=== PATIENT | female | born 1990 | race Caucasian/White ===

== ENCOUNTER 2016-06-20 18:46 | Emergency (ER) | payer BC ==
--- NOTE | ~2016-06-20 | CR286 ---
[facility] A Service of [facility] RADIOLOGY TEXT RESULTS PATIENT: FARIBA DASILVA LOCATION: SED : [birth year] UNIT #: [id number] AGE: [address]: Debby Acuña SEX: F ORDER DR: [id number] [address] [address] [id number] E MR#: [id number] #: [id number] NAME: FARIBA DASILVA : 1990 SEX: F STUDY DATE/TIME: 06/20/2016 18:56 UNIT: SED ROOM: STUDY DESCRIPTION: CR Wrist W Navicular Min 3 Rt Attending Physician: Debby Acuña P.A.-C. Ordering Physician: Debby Acuña P.A.-C. Primary Care Physician: Primary Care Physician No MEDICAL IMAGING REPORT This report is preliminary unless electronic signature is present. EXAM Right wrist 3 views. HISTORY Fell last night. Pain and swelling, not to touch. FINDINGS 3 views of the right wrist demonstrates an intraarticular fracture of the distal radius. There is an old ununited ulnar styloid fracture or accessory ossicle. Moderate amount of soft tissue swelling over the dorsum of the hand, nonspecific. IMPRESSION 1. Apparent nondisplaced intraarticular fracture of the distal radius which extends intraarticular near the scapholunate interval. There is also a well corticated ossicle off the ulnar styloid which may represent an accessory ossicle which is favored. An old ulnar styloid fracture considered less likely. 2. Dorsal soft tissue swelling could be related to recent fracture though superimposed cellulitis not excluded. Dictated by... Karine Santiago M.D. THIS IS AN ELECTRONICALLY VERIFIED REPORT Karine Santiago M.D. at 06/21/2016 1:07 PM JEREMY/frank TD: 06/20/2016 22:11 JOB #: [id number] [facility] A Service of [facility] RADIOLOGY TEXT RESULTS PATIENT: FARIBA DASILVA LOCATION: SED : 91 UNIT #: [id number] AGE: [address]: Debby Acuña SEX: F ORDER DR: MEDICAL IMAGING REPORT Page 1 of 1
--- NOTE | ~2016-06-20 | CR142 ---
[facility]. [facility] A Service of [facility] RADIOLOGY TEXT RESULTS PATIENT: FARIBA DASILVA LOCATION: SED : 91 UNIT #: [id number] AGE: [address]: Debby Acuña SEX: F ORDER DR: [id number] [address] [address] [id number] E MR#: [id number] Acc #: [id number] NAME: FARIBA DASILVA : 1990 SEX: F STUDY DATE/TIME: 06/20/2016 18:56 UNIT: SED ROOM: STUDY DESCRIPTION: CR Hand Min 3 Views Rt Attending Physician: Debby Acuña P.A.-C. Ordering Physician: Debby Acuña P.A.-C. Primary Care Physician: Primary Care Physician No MEDICAL IMAGING REPORT This report is preliminary unless electronic signature is present. EXAM Right hand 3 views. HISTORY Pain and swelling, fell last night. FINDINGS 3 views of the right hand demonstrates soft tissue swelling over the dorsum of the hand. There is a nondisplaced intraarticular fracture of the distal radius. Well-corticated ossicle distal to the ulna probably represents an accessory ossicle and less likely old ulnar styloid fracture. The distal radial fracture primarily represents a longitudinal fracture extending intraarticular at the scapholunate interval but again no deformity of the radial articular surface. Dictated by... Karine Santiago M.D. THIS IS AN ELECTRONICALLY VERIFIED REPORT Karine Santiago M.D. at 06/21/2016 1:07 PM JEREMY/frank TD: 06/20/2016 22:13 JOB #: [id number] MEDICAL IMAGING REPORT Page 1 of 1
[~2016-06-20 18:46] MED LIST: AMOXICILLIN500 M1 PO; BP PILL; BROMPHED DM PO; DICLOFENAC DR PO; FLEXERIL PO; FLEXERIL10 MG PO; FLONASE 0.05% N16 G1; NAPROXEN PO; NO MEDICATIONS; SUDAFED PO; TESSALON PERLE100 M1 PO
[2016-06-20] MEDS ORDERED: MOTRIN600 M2 DOB (19:39)
[2016-06-20] MEDS ORDERED: HYDROCODON-ACE1 EAC7 PO (19:40)
== END 2016-06-20 19:40 | disposition home or self-care (01) ==
LOC: SED 18:46
DX: S52.501A Unspecified fracture of the lower end of right radius, initial encounter for closed fracture (principal); I10 Essential (primary) hypertension; F17.210 Nicotine dependence, cigarettes, uncomplicated; W18.00XA Striking against unspecified object with subsequent fall, initial encounter; Y93.67 Activity, basketball; Y92.9 Unspecified place or not applicable
CPT/HCPCS: 29125; 73110; 73130; 99283